=== PATIENT | male | born 1940 | race African-American/Black ===

== ENCOUNTER → 2016-12-06 | Outpatient (CLI) | payer MEDICARE ==
[~2016-12-06] MED LIST: ASPIRIN325 M1 PO; B-COMPLEX W-VIT1 TAB PO; FISH OIL 1,2001 EACH PO; LUMIGAN2.5 ML OP
== END | disposition home or self-care (01) ==
LOC: CECH 13:45
DX: Z01.810 Encounter for preprocedural cardiovascular examination (principal); I34.0 Nonrheumatic mitral (valve) insufficiency; I36.1 Nonrheumatic tricuspid (valve) insufficiency; I37.1 Nonrheumatic pulmonary valve insufficiency
CPT/HCPCS: 93306

== ENCOUNTER → 2016-12-11 | Outpatient (CLI) | payer MEDICARE ==
--- NOTE | ~2016-12-11 | CR235 ---
[facility] A Service of [facility] RADIOLOGY TEXT RESULTS PATIENT: DORITA SANCHEZ LOCATION: [facility] : 39 UNIT #: [id number] AGE: [address]: Surinder Kelley MD SEX: M ORDER DR: [id number] [facility] [address]. [place], [place] [address] [id number] O MR#: [id number] Acc #: [id number] NAME: DORITA SANCHEZ : 1940 SEX: M STUDY DATE/TIME: 12/11/2016 14:11 UNIT: [facility] ROOM: STUDY DESCRIPTION: CR Skull Min 4 Views Attending Physician: Surinder Kelley M.D. Referring Physician: Surinder Kelley M.D. Ordering Physician: Surinder Kelley M.D. Primary Care Physician: Dru Garcia M.D. MEDICAL IMAGING REPORT This report is preliminary unless electronic signature is present EXAM Skull series HISTORY Abnormal bone scan left lateral skull. TECHNIQUE Five views of the skull were obtained. FINDINGS Five views of the skull show no lytic or blastic destructive bone lesions. No asymmetric hyperdensity is seen in the skull. IMPRESSION Negative skull series. Consider CT scanning of the skull base without contrast for further evaluation of the nuclear medicine abnormality. Dictated by... Diogo Padilla M.D. THIS IS AN ELECTRONICALLY VERIFIED REPORT Diogo Padilla M.D. at 12/13/2016 3:44 PM NASREEN/jacinto TD: 12/13/2016 06:42 JOB #: [id number] MEDICAL IMAGING REPORT Page 1 of 1 COPY
--- NOTE | ~2016-12-11 | CT2 ---
[facility] A Service of [facility] RADIOLOGY TEXT RESULTS PATIENT: DORITA SANCHEZ LOCATION: [facility] : 39 UNIT #: [id number] AGE: [address]: Surinder Kelley MD SEX: M ORDER DR: [id number] [place] [id number] [facility]. [place], [place] [address] [id number] O MR#: [id number] Acc #: [id number] NAME: DORITA SANCHEZ : 1940 SEX: M STUDY DATE/TIME: 12/11/2016 10:17 UNIT: [facility] ROOM: STUDY DESCRIPTION: CT Abd and Pelv W Cont Attending Physician: Surinder Kelley M.D. Referring Physician: Surinder Kelley M.D. Ordering Physician: Surinder Kelley M.D. Primary Care Physician: Dru Garcia M.D. MEDICAL IMAGING REPORT This report is preliminary unless electronic signature is present EXAM CT of the abdomen and pelvis with contrast INDICATIONS Prostate cancer. Observation for metastatic disease. TECHNIQUE CT of the abdomen and pelvis was performed following administration of oral and IV contrast. Coronal and sagittal reformatted images were obtained. This CT exam was performed with one or more of the following radiation dose reduction techniques: automatic exposure control, adjustment of mA and/or kV according to patient size, and iterative reconstruction. COMPARISON No comparisons available. FINDINGS ABDOMEN: There are multiple cysts within the liver. The gallbladder and spleen are unremarkable. There is a large cyst in the left kidney. The right kidney is unremarkable. The adrenal glands are unremarkable. The pancreas is unremarkable. PELVIS: Prostatomegaly. The colon is unremarkable. The appendix is normal. The bone windows demonstrate some Schmorl nodes in the lumbar spine and degenerative change at L5-S1, but otherwise unremarkable. IMPRESSION No evidence for metastatic disease. Dictated by... Manuel Bhagat M.D. [facility] A Service [facility] RADIOLOGY TEXT RESULTS PATIENT: DORITA SANCHEZ LOCATION: [facility] : 39 UNIT #: [id number] AGE: [address]: Surinder Kelley MD SEX: M ORDER DR: THIS IS AN ELECTRONICALLY VERIFIED REPORT Manuel Bhagat M.D. at 12/12/2016 8:15 AM Gertrude TD: 12/11/2016 16:00 JOB #: [id number] MEDICAL IMAGING REPORT Page 1 of 1 COPY
--- NOTE | ~2016-12-11 | NM8 ---
[facility] A Service of [facility] RADIOLOGY TEXT RESULTS PATIENT: DORITA SANCHEZ LOCATION: [facility] : 39 UNIT #: [id number] AGE: [address]: Surinder Kelley MD SEX: M ORDER DR: [id number] [facility] [address] [place], [place] [address] [id number] O MR#: [id number] Acc #: [id number] NAME: DORITA SANCHEZ : 1940 SEX: M STUDY DATE/TIME: 12/11/2016 13:10 UNIT: [facility] ROOM: STUDY DESCRIPTION: DC Bone or Joint Whole Body Attending Physician: Surinder Kelley M.D. Referring Physician: Surinder Kelley M.D. Ordering Physician: Surinder Kelley M.D. Primary Care Physician: Dru Garcia M.D. MEDICAL IMAGING REPORT This report is preliminary unless electronic signature is present EXAM Whole-body bone scan 12/11/2016 COMPARISON Skull radiograph 12/11/[address] abdomen and pelvis 12/11/2016. HISTORY Order states whole-body bone scan plain films with hot spots. Prostate cancer. History sheet states no bone pain. No recent fall or fracture. No bone surgery. Left knee stiffness. Prostate cancer diagnosed 11/26/2016. PSA at 10. TECHNIQUE The patient received 27.1 mCi technetium 99m MDP intravenously and anterior posterior whole-body scans are supplemented by spot images of the calvarium and thorax. FINDINGS There is no definitive scintigraphic evidence of metastatic disease. Small focus of increased uptake in the left temporal bone region shows no correlative radiographic finding although a small metastatic osseous lesion could be scintigraphically occult. Mild increased uptake in the right sternoclavicular joint, right AC joint, left knee, and bilateral great toes is likely arthritic. There is minimal increased uptake in the right thumb, also likely arthritic. Kidneys are unremarkable. IMPRESSION 1. No definitive scintigraphic evidence of metastatic disease. 2. Small focus of mild increased uptake in the left temporal bone region without radiographic correlative abnormality. Although metastatic disease is not completely excluded, an isolated STS. [facility] A Service of [facility] RADIOLOGY TEXT RESULTS PATIENT: DORITA SANCHEZ LOCATION: [facility] : 39 UNIT #: [id number] AGE: [address]: Surinder Kelley MD SEX: M ORDER DR: calvarial lesion is unlikely. CT of the head with bone windows would provide more specificity if clinically warranted. 3. Scattered arthritic changes as described. Dictated by... Carmen Morales M.D. THIS IS AN ELECTRONICALLY VERIFIED REPORT Carmen Morales M.D. at 12/12/2016 3:23 PM C/tiffany TD: 12/12/2016 14:20 JOB #: [id number] MEDICAL IMAGING REPORT Page 1 of 1 COPY
[2016-12-11 17:26] LABS: POC - CREATININE 0.62 mg/dL (0.64-1.27); POC - GFR >60.0 mL/min (>60)
== END | disposition home or self-care (01) ==
LOC: CNUC 09:02
PROVIDERS: Urology
DX: C61 Malignant neoplasm of prostate (principal)
CPT/HCPCS: 70260; 74177; 78306; 82565; A9503; Q9967

== ENCOUNTER → 2017-01-01 | Outpatient (CLI) | payer MEDICARE ==
--- NOTE | ~2017-01-01 | CT71 ---
[facility] A Service of [facility] & [facility] RADIOLOGY TEXT RESULTS PATIENT: DORITA SANCHEZ LOCATION: [facility] : 39 UNIT #: [id number] AGE: [address]: Surinder Kelley MD SEX: M ORDER DR: [id number] [facility] [address] [place], [place] [address] [id number] O MR#: [id number] Acc #: [id number] NAME: DORITA SANCHEZ : 1940 SEX: M STUDY DATE/TIME: 01/01/2017 8:10 UNIT: [facility] ROOM: STUDY DESCRIPTION: CT Head Wo Contrast Attending Physician: Surinder Kelley M.D. Referring Physician: Surinder Kelley M.D. Ordering Physician: Surinder Kelley M.D. Primary Care Physician: Neo Vo M.D. MEDICAL IMAGING REPORT This report is preliminary unless electronic signature is present EXAM Head CT without contrast. HISTORY Prostate cancer with a bone lesion found on the bone scan a month ago, for further evaluation. No complaints per patient otherwise. TECHNIQUE Routine noncontrast head CT is reviewed. This CT exam was performed with one or more of the following radiation dose reduction techniques: automatic exposure control, adjustment of mA and/or kV according to patient size, and iterative reconstruction. COMPARISON STUDIES The comparison is a nuclear medicine bone scan from 12/11/2016. FINDINGS There is a lesion in the left temporal bone corresponding to the focus of abnormal uptake on the earlier bone scan. It is expansile and has a lucent center measuring about 0.7 cm in diameter and a surrounding area of ground-glass appearance measuring about 1.6 x 0.9 cm dimension. It is still well corticated, and there does appear to be some sclerosis between the ground-glass region and the lucent region. This is a nonspecific lesion. Given the uptake on the bone scan, the patient's age group and the expansile nature of the lesion, a consideration would be Paget's disease. Some metastatic disease from an unknown primary is possible but felt less likely since there is no clear cortical disruption. The lesion is not typical of multiple myeloma or plasmocytoma. The lesion is not typical for prostate cancer. Furthermore, there are no other lesions on the bone scan to suggest osseous metastatic disease. For this reason, I would suggest followup head CT in about 6 months to reassess for change, STS. [facility] A Service of [facility] RADIOLOGY TEXT RESULTS PATIENT: DORITA SANCHEZ LOCATION: [facility] : 39 UNIT #: [id number] AGE: [address]: Surinder Kelley MD SEX: M ORDER DR: and in the meantime, please correlate for any clinical concern for Paget's disease. Otherwise there are no additional suspicious skull lesions. The visualized mastoid air cells are clear. It is likely that the maxillary sinus on the right side is atelectatic, though it is mostly not in the field of view. There is some mild paranasal sinus mucosal thickening. There is mild generalized atrophy which is essentially age-appropriate. There is no extraaxial fluid collection. The ventricles are normal in size and configuration for age group. Likely minor periventricular white matter low-attenuation due to small vessel disease. No intracranial mass effect is suspected. IMPRESSION 1. There is a nonspecific bone lesion in the left temporal bone plana portion corresponding to the area of abnormal activity on the bone scan. Please refer to the full description of findings above. The lesion is nonspecific. Largest dimensions are 1.6 x 0.9 cm, and I would recommend a followup head CT without contrast in about 6 months to reassess. 2. Otherwise essentially age-appropriate noncontrast head CT likely minor sequelae of small vessel disease. Dictated by... Hina Estrada M.D. THIS IS AN ELECTRONICALLY VERIFIED REPORT Hina Etsrada M.D. at 01/02/2017 7:27 AM VIJI/alicia TD: 01/01/2017 21:46 JOB #: [id number] MEDICAL IMAGING REPORT Page 1 of 1 COPY
== END | disposition home or self-care (01) ==
LOC: CCAT 07:45
DX: C61 Malignant neoplasm of prostate (principal); M89.9 Disorder of bone, unspecified; G31.9 Degenerative disease of nervous system, unspecified
CPT/HCPCS: 70450